=== PATIENT | male | born 1970 | race Caucasian/White ===

== ENCOUNTER 2019-08-10 22:53 | Emergency (ER) | payer MEDICAID ==
[~2019-08-10] VITALS: Ht 170.2 cm; Wt 161.4 kg
[2019-08-10 23:04] VITALS: Ht 170.2 cm; Wt 161.4 kg
[2019-08-10] MEDS ORDERED: NEURONTIN600 MG PO (23:06)
[2019-08-10] MEDS ORDERED: COLCRYS0.6 MG PO (23:07)
[2019-08-10] MEDS ORDERED: BENTYL 20 MG TA20 MG PO (23:07)
[2019-08-10] MEDS ORDERED: ULORIC80 MG PO (23:07)
[2019-08-10] MEDS ORDERED: ZIPSOR25 MG PO (23:07)
[2019-08-10] MEDS ORDERED: COREG6.25 MG PO (23:08)
[2019-08-10] MEDS ORDERED: FLECAINIDE ACE100 MG PO (23:08)
[2019-08-10] MEDS ORDERED: DILTIAZEM 24HR180 M4 PO (23:08)
[2019-08-10] MEDS ORDERED: ELIQUIS5 MG PO (23:08)
[2019-08-10] MEDS ORDERED: CATAPRES0.1 MG PO (23:09)
[2019-08-10] MEDS ORDERED: ISOSORBIDE DINI30 MG PO (23:09)
[2019-08-10] MEDS ORDERED: LISINOPRIL5 MG PO (23:09)
[2019-08-10] MEDS ORDERED: PRAVACHOL20 MG PO (23:10)
[2019-08-10] MEDS ORDERED: TRULICITY0.75 MG/0. (23:10)
[2019-08-10] MEDS ORDERED: GLUCOTROL 5 MG T5 MG PO (23:10)
[2019-08-10] MEDS ORDERED: NITROSTAT0.3 MG SL (23:10)
[2019-08-10] MEDS ORDERED: LEVOXYL25 MCG (23:11)
[2019-08-10] MEDS ORDERED: LASIX40 MG PO (23:11)
[2019-08-10] MEDS ORDERED: METOLAZONE2.5 MG PO (23:11)
[2019-08-10] MEDS ORDERED: MIRAPEX1 MG PO (23:12)
[2019-08-10] MEDS ORDERED: ZANAFLEX4 MG PO (23:12)
[2019-08-10 23:29] LABS: BASOPHILS 0.5 % (0-2); EOSINOPHILS 4.9 % (0-7); HEMATOCRIT 42.2 % (42.0-54.0); HEMOGLOBIN 14.1 g/dL (13.5-17.5); IMMATURE GRANULOCYTES 0.5 % (0-5); LYMPHOCYTES 21.4 % (15-50); MCH 32.3 pg (26.0-34.0); MCHC 33.4 g/dL (31.0-37.0); MCV 96.8 fL (80.0-100.0); MONOCYTES 8.4 % (2-11); NEUTROPHILS 64.3 % (40-80); PLATELET COUNT 210 10x3/uL (130-400); RBC 4.36 10x6/uL (4.20-6.10); RDW 13.3 % (11.5-14.5); WBC 13.2 10x3/uL (4.8-10.8)
[2019-08-10 23:37] LABS: APTT 26.5 SECONDS (22.8-39.4); CALC OSMOLALITY 293 mosm/kg (275-300); CALCIUM 8.9 mg/dL (8.5-10.1); CARBON DIOXIDE 28.2 mmol/L (21.0-32.0); CHLORIDE - SERUM 103 mmol/L (98-107); CREATININE - SERUM 1.2 mg/dL (0.6-1.3); GLUCOSE 345 mg/dL (74-106); INR 1.08 (0.85-1.17); POTASSIUM - SERUM 4.2 mmol/L (3.5-5.1); PROTIME 13.5 SECONDS (11.6-15.0); SODIUM 140 mmol/L (136-145); UREA NITROGEN 15 mg/dL (7-18); eGFR NON AFRICAN AMERICAN 68 mL/min (90-120)
[2019-08-10 23:53] LABS: ALBUMIN 3.1 g/dL (3.4-5.0); ALKALINE PHOSPHATASE 132 U/L (46-116); ALT (SGPT) 48 U/L (10-68); BILIRUBIN - TOTAL 0.27 mg/dL (0.2-1.3); CREATINE KINASE 103 UL (21-232); PRO BNP 47 pg/mL (0-125); PROTEIN - SERUM 6.8 g/dL (6.4-8.2)
[2019-08-10 23:54] LABS: TROPONIN-I < 0.017 ng/mL (0.000-0.060)
[2019-08-11 02:20] VITALS: BP 134/94
== END 2019-08-11 02:21 | disposition home or self-care (01) ==
LOC: D.ER 22:53
PROVIDERS: Family Medicine
DX: R06.00 Dyspnea, unspecified (principal); R09.02 Hypoxemia; E11.40 Type 2 diabetes mellitus with diabetic neuropathy, unspecified; Z95.0 Presence of cardiac pacemaker; I48.91 Unspecified atrial fibrillation; J44.9 Chronic obstructive pulmonary disease, unspecified; E07.9 Disorder of thyroid, unspecified; Z79.84 Long term (current) use of oral hypoglycemic drugs; I11.0 Hypertensive heart disease with heart failure; I50.9 Heart failure, unspecified